=== PATIENT | female | born 1980 | race Caucasian/White ===

== ENCOUNTER 2017-02-19 18:04 | Emergency (ER) | payer BC ==
[2017-02-19 18:52] VITALS: BP 113/60
--- NOTE | 2017-02-19 19:06 | UC ---
Throat Pain/Nasal Balbir HPI - HPI Summary HPI Summary: Sever ST since last night. Son currently has strep and is being treated. - History of Current Complaint Chief Complaint: UCRespiratory Stated Complaint: SORE THROAT Time Seen by Provider: 02/19/17 18:56 Hx Obtained From: Patient Hx Last Menstrual Period: 2 weeks ago ?: No Onset/Duration: Gradual Onset, Lasting Days Severity: Moderate Cough: None Associated Signs & Symptoms: Negative: Sinus Discomfort, Nasal Discharge - Allergies/Home Medications Allergies/Adverse Reactions: Allergies Allergy/AdvReac Type Severity Reaction Status Date / Time Codeine Allergy Intermediate Nausea And Verified 02/19/17 18:46 Vomiting Molds & Smuts Allergy Intermediate Difficulty Verified 02/19/17 18:46 Breathing Penicillins Allergy Intermediate Unknown Verified 02/19/17 18:46 Reaction Details Cephalexin [From Keflex] Allergy Rash Verified 02/19/17 18:46 Clindamycin Allergy Rash Verified 02/19/17 18:46 Iodine Allergy Hives Verified 02/19/17 18:46 ADHESIVE TAPE Allergy Blisters Uncoded 02/19/17 18:46 PMH/Surg Hx/FS Hx/Imm Hx Endocrine History Of: Denies: Diabetes, Thyroid Disease Cardiovascular History Of: Denies: Cardiac Disorders, Hypertension - TENDS TO BE LOW, SOMETIMES MAKES HER VERY WEAK, Pacemaker/ICD, Congestive Heart Failure Respiratory History Of: Denies: COPD, Asthma GI/ History Of: Denies: Ulcer, Renal Disease Psychological History Of: Reports: Anxiety - Hx OF, HAS MEDS, HASN'T USED THIS YEAR, Depression - Surgical History Surgical History: Yes Surgery Procedure, Year, and Place: 2010 TUBAL LIGATION [facility] [place] 1997 & 2010 C- SECTION X2 [facility] [place]/2011 INTESTINAL RESECTION [facility] [place] Sinus Surgery 11/2014 - Family History Known Family History: Positive: Hypertension - Social History Lives: With Family Alcohol Use: Weekly Alcohol Amount: 2-3 DRINKS/WEEK Substance Use Type: None Substance Use Comment - Amount & Last Used: daily xanax Smoking Status (MU): Heavy Every Day Tobacco Smoker Type: Cigarettes Amount Used/How Often: 16 cigs per day Length of Time of Smoking/Using Tobacco: 17 YEARS Have You Smoked in the Last Year: Yes Household Exposure Type: Cigarettes - Immunization History Most Recent Influenza Vaccination: fall 2015 Review of Systems Constitutional: Negative Skin: Negative Eyes: Negative ENT: Sore Throat Respiratory: Negative Cardiovascular: Negative Gastrointestinal: Negative Genitourinary: Negative Motor: Negative Neurovascular: Negative Musculoskeletal: Negative Neurological: Negative Psychological: Negative All Other Systems Reviewed And Are Negative: Yes Physical Exam Triage Information Reviewed: Yes Appearance: Well-Appearing, Well-Nourished, Pain Distress - with swallowing Vital Signs: Initial Vital Signs Temp 98.0 F 02/19/17 18:48 Pulse 82 02/19/17 18:48 Resp 16 02/19/17 18:48 BP 113/60 02/19/17 18:48 Pulse Ox 99 02/19/17 18:48 Vital Signs Reviewed: Yes Eye Exam: Normal Eyes: Positive: Conjunctiva Clear ENT: Positive: Hearing grossly normal, Pharyngeal erythema, TMs normal, Tonsillar swelling, Tonsillar exudate Dental: Positive: Gross Decay/Caries @ Neck: Positive: Supple, Enlarged Nodes @ - tonsillar Respiratory Exam: Normal Respiratory: Positive: Chest non-tender, Lungs clear, Normal breath sounds, No respiratory distress, No accessory muscle use Cardiovascular Exam: Normal Cardiovascular: Positive: RRR, No Murmur Musculoskeletal Exam: Normal Neurological Exam: Normal Neurological: Positive: Alert Psychological Exam: Normal Skin Exam: Normal Throat Pain/Nasal Course/Dx - Course Course Of Treatment: Discussed clinical dx of strep given her symptoms and close household contact with strep, pt understands and agrees. Does not want RST. - Differential Dx/Diagnosis Provider Diagnoses: strep tonsillitis Discharge - Discharge Plan Condition: Stable Disposition: HOME Prescriptions: Azithromyxin RAOUL (NF) [Z-Raoul (Zithromax) 250 mg tabs #6] 2 tab PO .TODAY, THEN 1 DAILY #6 tab Patient Education Materials: Strep Throat (ED) Referrals: Gurjit Murray MD [Primary Care Provider] - Additional Instructions: I expect you to have clear improvement over the next 3-4 days. If you have new symptoms or fever after the next 2 days, please see your primary care provider or return here.
== END 2017-02-19 19:05 | disposition home or self-care (01) ==
LOC: UCEAST 18:04
DX: J03.00 Acute streptococcal tonsillitis, unspecified (principal); F41.9 Anxiety disorder, unspecified; F17.210 Nicotine dependence, cigarettes, uncomplicated; Z88.5 Allergy status to narcotic agent; Z88.3 Allergy status to other anti-infective agents; Z88.0 Allergy status to penicillin; Z91.048 Other nonmedicinal substance allergy status
CPT/HCPCS: 99212; G0463

== ENCOUNTER 2017-05-03 03:50 | Emergency (ER) | payer BC ==
[2017-05-03] MEDS ORDERED: Sulfamethox/Trimethoprim DS 800/160* TAB PO ONE (04:09)
[2017-05-03] MEDS ORDERED: Acetaminophen TAB* 325 MG PO ONE (04:20)
--- NOTE | 2017-05-03 04:21 | ED ---
Patricia Casas Rebecca, scribed for Noel Worthy MD on 05/03/17 at 0411 . Complex/Multi-Sys Presentation - HPI Summary HPI Summary: Pt is a 37 y/o F who presents to ED c/o dental pain and swelling. Pain began yesterday (05/02) at "dinner time" with the swelling starting at 2300. Sx have been constant and worsening since onset. Pain is currently severe, ranked 7/10. Sx aggravated by salt water rinse, alleviated by nothing. - History Of Current Complaint Chief Complaint: EDGeneral Time Seen by Provider: 05/03/17 04:05 Hx Obtained From: Patient Onset/Duration: Still Present Timing: Constant Severity Initially: Moderate - 05/06 Location: Pain At: - Dental Aggravating Factor(s): Salt water rinse Alleviating Factor(s): Nothing Associated Signs And Symptoms: Positive: Other - Dental swelling - Allergies/Home Medications Allergies/Adverse Reactions: Allergies Allergy/AdvReac Type Severity Reaction Status Date / Time Codeine Allergy Intermediate Nausea And Verified 05/03/17 03:52 Vomiting Molds & Smuts Allergy Intermediate Difficulty Verified 05/03/17 03:52 Breathing Penicillins Allergy Intermediate Unknown Verified 05/03/17 03:52 Reaction Details Cephalexin [From Keflex] Allergy Rash Verified 05/03/17 03:52 Clindamycin Allergy Rash Verified 05/03/17 03:52 Iodine Allergy Hives Verified 05/03/17 03:52 ADHESIVE TAPE Allergy Blisters Uncoded 05/03/17 03:52 PMH/Surg Hx/FS Hx/Imm Hx Endocrine/Hematology History: Denies: Hx Diabetes, Hx Thyroid Disease Cardiovascular History: Reports: Other Cardiovascular Problems/Disorders - LOW BLOOD PRESSURE & LOW BLOOD SUGAR Denies: Hx Congestive Heart Failure, Hx Hypertension - TENDS TO BE LOW, SOMETIMES MAKES HER VERY WEAK, Hx Pacemaker/ICD Respiratory History: Denies: Hx Asthma, Hx Chronic Obstructive Pulmonary Disease (COPD) GI History: Denies: Hx Ulcer Comment Only: Other GI Disorders - 10/2011 INTESTIONAL OBSTRUCTION SURGERY History: Denies: Hx Dialysis, Hx Renal Disease Sensory History: Reports: Hx Contacts or Glasses - WILL WEAR GLASSES Denies: Hx Hearing Aid Opthamlomology History: Reports: Hx Contacts or Glasses - WILL WEAR GLASSES Psychiatric History: Reports: Hx Anxiety - Hx OF, HAS MEDS, HASN'T USED THIS YEAR, Hx Depression, Hx of Violent Episodes Against Others Denies: Hx Eating Disorder, Hx Panic Disorder - Surgical History Surgery Procedure, Year, and Place: 2010 TUBAL LIGATION [facility] [place] 1997 & 2010 C- SECTION X2 [facility] [place]/2011 INTESTINAL RESECTION [facility] [place] Sinus Surgery 11/2014 Hx Anesthesia Reactions: - BP DROPPED LOW Infectious Disease History: No Infectious Disease History: Reports: Hx Shingles Denies: Hx Clostridium Difficile, Hx Hepatitis, Hx Human Immunodeficiency Virus (HIV), Hx of Known/Suspected MRSA, Hx Tuberculosis, Traveled Outside the [place] in Last 30 Days - Family History Known Family History: Positive: Hypertension - Social History Alcohol Use: Weekly Alcohol Amount: 2-3 DRINKS/WEEK Substance Use Type: Reports: None Substance Use Comment - Amount & Last Used: daily xanax Smoking Status (MU): Heavy Every Day Tobacco Smoker Type: Cigarettes Amount Used/How Often: 16 cigs per day Length of Time of Smoking/Using Tobacco: 17 YEARS Have You Smoked in the Last Year: Yes Review of Systems Negative: Fever Positive: Dental Pain, Other - Dental swelling All Other Systems Reviewed And Are Negative: Yes Physical Exam Triage Information Reviewed: Yes Vital Signs On Initial Exam: Initial Vitals Temp Pulse Resp BP Pulse Ox 97.5 F 80 18 133/70 100 05/03/17 03:52 05/03/17 03:52 05/03/17 03:52 05/03/17 03:52 05/03/17 03:52 Vital Signs Reviewed: Yes Appearance: Positive: Well-Appearing, No Pain Distress Skin: Positive: Warm Head/Face: Positive: Normal Head/Face Inspection Eyes: Positive: JOHAN ENT: Positive: Hearing grossly normal Dental: Positive: Gross Decay/Caries @ - rt lower mouth Neck: Positive: Supple, Nontender Respiratory/Lung Sounds: Positive: Breath Sounds Present Neurological: Positive: Alert, Oriented to Person Place, Time Psychiatric: Positive: Affect/Mood Appropriate Diagnostics - Vital Signs Vital Signs Temp Pulse Resp BP Pulse Ox 05/03/17 03:52 97.5 F 80 18 133/70 100 - Laboratory Lab Statement: Any lab studies that have been ordered have been reviewed, and results considered in the medical decision making process. Complex Multi-Symp Course/Dx Assessment/Plan: Pt is a 37 y/o F who presents to ED c/o dental pain since "dinner time" yesterday and swelling since 2300. Sx have been constant and worsening since onset. Pain is currently severe, ranked 7/10. Sx aggravated by salt water rinse, alleviated by nothing. Pt will be D/C to home with Dx of dental pain and an Rx for Bactrim. - Diagnoses Provider Diagnoses: Pain, dental Discharge - Discharge Plan Condition: Stable Disposition: HOME Prescriptions: Sulfamethox/Trimethoprim DS* [Bactrim DS 800/160 TAB*] 1 tab PO BID #14 tab Patient Education Materials: Toothache (ED) Referrals: Gurjit Murray MD [Primary Care Provider] - 3 Days The documentation as recorded by the Patricia hurley Rebecca accurately reflects the service I personally performed and the decisions made by me, Noel Worthy MD.
[2017-05-03 04:29] VITALS: BP 123/67
== END 2017-05-03 04:28 | disposition home or self-care (01) ==
LOC: ED 03:50
DX: K08.89 Other specified disorders of teeth and supporting structures (principal); F17.210 Nicotine dependence, cigarettes, uncomplicated
CPT/HCPCS: 99282; A9270-GY

== ENCOUNTER → 2017-05-04 06:30 | Emergency (ER) | payer BC ==
[~2017-05-04 06:30] MED LIST: HYDROcodone/ACETAMIN 5-325 MG* 1 TAB PO ONE; Ketorolac INJ* 60 MG/2 ML VIAL IM ONE
[2017-05-04 08:26] VITALS: BP 127/77
--- NOTE | 2017-05-05 22:33 | ED ---
Patricia Casas Rebecca, scribed for Paulino Pelaez MD on 05/04/17 at 0754 . Complex/Multi-Sys Presentation - HPI Summary HPI Summary: Pt is a 37 y/o who presents to ED c/o dental pain. Pain began 2 days ago and has been constant and worsening since onset. Pain is in the front of the mouth with radiation to the R side of the jaw. Pain is currently severe, ranked 10/10 and characterized as throbbing and shooting. Sx aggravated by chewing, alleviated by cold compresses, unchanged by Vicodin (last dose at 0300) and Ibuprofen (600 mg every 6 hours). Additionally c/o sore throat. Denies fever. Pt was evaluated by [facility] ED yesterday for the same sx, was D/C to home with Dx of dental pain and given an Rx for Bactrim. She was seen by her dentist yesterday who found via XR that she has a dental abscess and changed her Rx to Clindamycin with the last dose being at 0400 this morning. Is calling her dentist on Saturday to schedule a follow up appointment. - History Of Current Complaint Chief Complaint: EDDentalPain Hx Obtained From: Patient Onset/Duration: Lasting Days, Still Present Timing: Constant Severity Currently: Severe Severity Initially: Severe Location: Pain At: - Dental, Radiates To: - R side of the jaw Character: Sharp, Throbbing Aggravating Factor(s): Chewing Alleviating Factor(s): Cold compress Associated Signs And Symptoms: Positive: Other - Sore throat. Negative: Fever - Allergies/Home Medications Allergies/Adverse Reactions: Allergies Allergy/AdvReac Type Severity Reaction Status Date / Time Codeine Allergy Intermediate Nausea And Verified 05/04/17 06:54 Vomiting Molds & Smuts Allergy Intermediate Difficulty Verified 05/04/17 06:54 Breathing Penicillins Allergy Intermediate Unknown Verified 05/04/17 06:54 Reaction Details Cephalexin [From Keflex] Allergy Rash Verified 05/04/17 06:54 Iodine Allergy Hives Verified 05/04/17 06:54 ADHESIVE TAPE Allergy Blisters Uncoded 05/04/17 06:54 PMH/Surg Hx/FS Hx/Imm Hx Endocrine/Hematology History: Denies: Hx Diabetes, Hx Thyroid Disease Cardiovascular History: Reports: Other Cardiovascular Problems/Disorders - LOW BLOOD PRESSURE & LOW BLOOD SUGAR Denies: Hx Congestive Heart Failure, Hx Hypertension - TENDS TO BE LOW, SOMETIMES MAKES HER VERY WEAK, Hx Pacemaker/ICD Respiratory History: Denies: Hx Asthma, Hx Chronic Obstructive Pulmonary Disease (COPD) GI History: Denies: Hx Ulcer Comment Only: Other GI Disorders - 10/2011 INTESTIONAL OBSTRUCTION SURGERY History: Denies: Hx Dialysis, Hx Renal Disease Sensory History: Reports: Hx Contacts or Glasses - WILL WEAR GLASSES Denies: Hx Hearing Aid Opthamlomology History: Reports: Hx Contacts or Glasses - WILL WEAR GLASSES Psychiatric History: Reports: Hx Anxiety - Hx OF, HAS MEDS, HASN'T USED THIS YEAR, Hx Depression, Hx of Violent Episodes Against Others Denies: Hx Eating Disorder, Hx Panic Disorder - Surgical History Surgery Procedure, Year, and Place: 2010 TUBAL LIGATION [facility] [place] 1997 & 2010 C- SECTION X2 [facility] [place]/2011 INTESTINAL RESECTION [facility] [place] Sinus Surgery 11/2014 Hx Anesthesia Reactions: - BP DROPPED LOW Infectious Disease History: No Infectious Disease History: Reports: Hx Shingles Denies: Hx Clostridium Difficile, Hx Hepatitis, Hx Human Immunodeficiency Virus (HIV), Hx of Known/Suspected MRSA, Hx Tuberculosis, Traveled Outside the in Last 30 Days - Family History Known Family History: Positive: Hypertension - Social History Alcohol Use: Rare Alcohol Amount: 2-3 DRINKS/WEEK Substance Use Type: Reports: None Substance Use Comment - Amount & Last Used: daily xanax Smoking Status (MU): Heavy Every Day Tobacco Smoker Type: Cigarettes Amount Used/How Often: 16 cigs per day Length of Time of Smoking/Using Tobacco: 17 YEARS Have You Smoked in the Last Year: Yes Review of Systems Negative: Fever, Chills Negative: Erythema Positive: Dental Pain, Sore Throat Negative: Chest Pain Negative: Shortness Of Breath, Cough Negative: Abdominal Pain, Vomiting, Nausea Negative: dysuria, hematuria Negative: Myalgia, Edema Negative: Rash Neurological: Other - Negative dizziness All Other Systems Reviewed And Are Negative: Yes Physical Exam - Summary Physical Exam Summary: Constitutional: Well-developed, Well-nourished, Alert. (-) Distressed Skin: Warm, Dry HENT: Normocephalic; Atraumatic Eyes: Conjunctiva normal Neck: Musculoskeletal ROM normal neck. (-) JVD, (-) Stridor, (-) Tracheal deviation Cardio: Rhythm regular, rate normal, Heart sounds normal; Intact distal pulses; The pedal pulses are 2+ and symmetric. Radial pulses are 2+ and symmetric. (-) Murmur Pulmonary/Chest wall: Effort normal. (-) Respiratory distress, (-) Wheezes, (-) Rales Abd: Soft, (-) Tenderness, (-) Distension, (-) Guarding, (-) Rebound Musculoskeletal: (-) Edema Lymph: (-) Cervical adenopathy Neuro: Alert, Oriented x3 Psych: Mood and affect Normal Triage Information Reviewed: Yes Vital Signs On Initial Exam: Initial Vitals Temp Pulse Resp BP Pulse Ox 97.4 F 70 20 121/66 98 05/04/17 06:32 05/04/17 06:32 05/04/17 06:32 05/04/17 06:32 05/04/17 06:32 Vital Signs Reviewed: Yes Diagnostics - Vital Signs Vital Signs Temp Pulse Resp BP Pulse Ox 05/04/17 06:40 97.6 F 70 20 121/66 98 05/04/17 06:32 97.4 F 70 20 121/66 98 - Laboratory Lab Statement: Any lab studies that have been ordered have been reviewed, and results considered in the medical decision making process. Complex Multi-Symp Course/Dx Assessment/Plan: Pt is a 37 y/o who presents to ED c/o severe dental pain for 2 days. Pain is in the front of the mouth with radiation to the R side of the jaw and characterized as throbbing and shooting. Sx aggravated by chewing, alleviated by cold compresses, unchanged by Vicodin (last dose at 0300) and Ibuprofen (600 mg every 6 hours). Additionally c/o sore throat. Denies fever. Pt was evaluated by [facility] ED yesterday for the same sx, was D/C to home with Dx of dental pain and given an Rx for Bactrim. She was seen by her dentist yesterday who found via XR that she has a dental abscess and changed her Rx to Clindamycin with the last dose being at 0400 this morning. Is calling her dentist on Saturday to schedule a follow up appointment. Pt will be D/C to home with Dx of dental abscess and Rx for Cornelius and Naprosyn. - Diagnoses Provider Diagnoses: Dental abscess Discharge - Discharge Plan Condition: Stable Disposition: HOME Prescriptions: HYDROcodone/ACETAMIN 5-325 MG* [Cornelius 5-325 TAB*] 2 tab PO Q6H PRN #15 tab MDD 8 PRN Reason: Pain Scale 6-10 Naproxen TAB* [Naprosyn 250 mg TAB*] 500 mg PO Q8H PRN #30 tab PRN Reason: Pain - Severe Patient Education Materials: Dental Abscess (ED) Referrals: Brandie Leonardo MD [Primary Care Provider] - 3 Days Additional Instructions: Call your dentist on Saturday. RETURN TO EMERGENCY DEPARTMENT FOR ANY CHANGING OR WORSENING SYMPTOMS. The documentation as recorded by the Patricia hurley Rebecca accurately reflects the service I personally performed and the decisions made by , Paulino Pelaez MD.
== END | disposition home or self-care (01) ==
LOC: ED 06:30
DX: K04.7 Periapical abscess without sinus (principal); J02.9 Acute pharyngitis, unspecified; Z88.5 Allergy status to narcotic agent; Z88.1 Allergy status to other antibiotic agents; Z88.0 Allergy status to penicillin; Z91.048 Other nonmedicinal substance allergy status; F41.9 Anxiety disorder, unspecified; F32.9 Major depressive disorder, single episode, unspecified; F17.210 Nicotine dependence, cigarettes, uncomplicated
CPT/HCPCS: 96372; 99282; J1885

== ENCOUNTER 2018-05-03 01:32 | Emergency (ER) | payer BC ==
[2018-05-03] MEDS ORDERED: Famotidine IV* 10 MG/ML 2 ML (20 mg) IV SLOW PU ONE (01:36)
[2018-05-03] MEDS ORDERED: methylPREDNISolone 125 MG* 2 ML VIAL IV ONE (01:36)
[2018-05-03] MEDS ORDERED: NS 0.9% 1000 ML* 1,000 ML IV ONE (01:37)
[2018-05-03] MEDS ORDERED: methylPREDNISolone 125 MG* 2 ML VIAL ONE (01:38)
[2018-05-03] MEDS ORDERED: Famotidine IV* 10 MG/ML 2 ML (20 mg) ONE (01:38)
--- NOTE | 2018-05-03 03:00 | ED ---
Ashlee Casas Emily, scribed for Chapo Cobb MD on 05/03/18 at 0142 . Allergic Reaction/Systemic - HPI Summary HPI Summary: This patient is a 38 year old F BIBA to [facility] with a chief complaint of allergic reaction that began MIXOLOGIST. The patient reports that she is allergic to fish, and ate fries that were cooked in oil used to cook fish. The patient rates the pain 0/10 in severity. Symptoms aggravated by nothing. Symptoms alleviated by EMS treatment. Patient reports cough and itching in neck and ears. Per EMS, pt received 0.3 Epi, 50 Benadryl IM, and nebulizer treatment MIXOLOGIST. - History of Current Complaint Time Seen by Provider: 05/03/18 01:36 Hx Obtained From: Patient Hx Last Menstrual Period: 2 weeks ago Onset/Duration: Sudden Onset, Started hours ago, Still Present Timing: Constant Severity Initially: Mild Severity Currently: Mild Pain Intensity: 0 Pain Scale Used: 0-10 Numeric Location: Diffuse Aggravating Factor(s): Nothing Alleviating Factor(s): Other - EMS treatment Associated Signs And Symptoms: Positive: Cough Wheezing, Other: - Positive itching in throat and ears - Allergies/Home Medications Allergies/Adverse Reactions: Allergies Allergy/AdvReac Type Severity Reaction Status Date / Time cephalexin Allergy Hives Verified 05/03/18 01:41 codeine Allergy Nausea And Verified 05/03/18 01:41 Vomiting iodine Allergy Hives Verified 05/03/18 01:41 mold Allergy Difficulty Verified 05/03/18 02:37 Breathing Penicillins Allergy Unknown Verified 05/03/18 01:41 Reaction Details ADHESIVE TAPE Allergy Blisters Uncoded 05/04/17 06:54 Home Medications: Home Medications Norethindrone 0.35 mg PO DAILY 05/03/18 [History Confirmed 05/03/18] Omeprazole 20 mg PO DAILY 05/03/18 [History Confirmed 05/03/18] PMH/Surg Hx/FS Hx/Imm Hx Previously Healthy: No Endocrine/Hematology History: Denies: Hx Diabetes, Hx Thyroid Disease Cardiovascular History: Reports: Other Cardiovascular Problems/Disorders - LOW BLOOD PRESSURE & LOW BLOOD SUGAR Denies: Hx Congestive Heart Failure, Hx Hypertension - TENDS TO BE LOW, SOMETIMES MAKES HER VERY WEAK, Hx Pacemaker/ICD Respiratory History: Denies: Hx Asthma, Hx Chronic Obstructive Pulmonary Disease (COPD) GI History: Denies: Hx Ulcer Comment Only: Other GI Disorders - 10/2011 INTESTIONAL OBSTRUCTION SURGERY History: Denies: Hx Dialysis, Hx Renal Disease Sensory History: Reports: Hx Contacts or Glasses - WILL WEAR GLASSES Denies: Hx Hearing Aid Opthamlomology History: Reports: Hx Contacts or Glasses - WILL WEAR GLASSES Psychiatric History: Reports: Hx Anxiety - Hx OF, HAS MEDS, HASN'T USED THIS YEAR, Hx Depression, Hx of Violent Episodes Against Others Denies: Hx Eating Disorder, Hx Panic Disorder - Surgical History Surgery Procedure, Year, and Place: 2010 TUBAL LIGATION [facility] [place] 1997 & 2010 C- SECTION X2 [facility] [place] INTESTINAL RESECTION [facility] [place] Sinus Surgery 11/2014 Hx Anesthesia Reactions: - BP DROPPED LOW Infectious Disease History: No Infectious Disease History: Reports: Hx Shingles Denies: Hx Clostridium Difficile, Hx Hepatitis, Hx Human Immunodeficiency Virus (HIV), Hx of Known/Suspected MRSA, Hx Tuberculosis, Traveled Outside the in Last 30 Days - Family History Known Family History: Positive: Hypertension - Social History Occupation: Employed Part-time Lives: With Family Alcohol Use: Rare Alcohol Amount: 2-3 DRINKS/WEEK Hx Substance Use: No Substance Use Type: Reports: None Substance Use Comment - Amount & Last Used: daily xanax Hx Tobacco Use: Yes Smoking Status (MU): Heavy Every Day Tobacco Smoker Type: Cigarettes Amount Used/How Often: 16 cigs per day Length of Time of Smoking/Using Tobacco: 17 YEARS Have You Smoked in the Last Year: Yes Review of Systems Positive: Other - Positive itching in throat and ears Positive: Cough All Other Systems Reviewed And Are Negative: Yes Physical Exam - Summary Physical Exam Summary: VITAL SIGNS: Reviewed. GENERAL: Patient is a well-developed and nourished female who is lying comfortable in the stretcher. Patient is not in any acute respiratory distress. HEAD AND FACE: No signs of trauma. No ecchymosis, hematomas or skull depressions. No sinus tenderness. EYES: PERRLA, EOMI x 2, No injected conjunctiva, no nystagmus. EARS: Hearing grossly intact. Ear canals and tympanic membranes are within normal limits. MOUTH: Oropharynx within normal limits. NECK: Supple, trachea is midline, no adenopathy, no JVD, no carotid bruit, no c- spine tenderness, neck with full ROM. CHEST: Symmetric, no tenderness at palpation LUNGS: Clear to auscultation bilaterally. No wheezing or crackles. Coughing CVS: Regular rate and rhythm, S1 and S2 present, no murmurs or gallops appreciated. ABDOMEN: Soft, non-tender. No signs of distention. No rebound no guarding, and no masses palpated. Bowel sounds are normal. EXTREMITIES: FROM in all major joints, no edema, no cyanosis or clubbing. NEURO: Alert and oriented x 3. No acute neurological deficits. Speech is normal and follows commands. SKIN: Dry and warm Triage Information Reviewed: Yes Vital Signs On Initial Exam: Initial Vitals Temp Pulse Resp BP Pulse Ox 97.9 F 95 28 134/76 96 05/03/18 01:35 05/03/18 01:35 05/03/18 01:35 05/03/18 01:35 05/03/18 01:35 Vital Signs Reviewed: Yes Diagnostics - Vital Signs Vital Signs Temp Pulse Resp BP Pulse Ox 05/03/18 01:35 97.9 F 95 28 134/76 96 - Laboratory Lab Statement: Any lab studies that have been ordered have been reviewed, and results considered in the medical decision making process. Allergic Reaction Course/Dx - Course Course Of Treatment: This patient is a 38 year old F BIBA to [facility] with a chief complaint of allergic reaction that began MIXOLOGIST. The patient reports that she is allergic to fish, and ate fries that were cooked in oil used to cook fish. In the ED course the patient was given fluids, solu-medrol, and Pepcid. Patient will be discharged with follow up from PCP. The patient is agreeable with this plan. - Diagnoses Provider Diagnoses: Allergic reaction Discharge - Sign-Out/Discharge Documenting (check all that apply): Discharge/Admit/Transfer - Discharge home - Discharge Plan Condition: Stable Disposition: HOME Prescriptions: predniSONE TAB* [Deltasone 20 MG TAB*] 40 mg PO DAILY #10 tab Patient Education Materials: General Allergic Reaction (ED), Prednisone (By mouth) Referrals: Brandie Leonardo MD [Primary Care Provider] - 2 Days Additional Instructions: RETURN TO THE EMERGENCY DEPARTMENT FOR NEW OR WORSENING SYMPTOMS The documentation as recorded by the Ashlee hurley Emily accurately reflects the service I personally performed and the decisions made by , Chapo Cobb MD.
[2018-05-03 03:32] VITALS: BP 119/59
== END 2018-05-03 03:10 | disposition home or self-care (01) ==
LOC: ED 01:32
DX: T78.40XA Allergy, unspecified, initial encounter (principal); R05 Cough; X58.XXXA Exposure to other specified factors, initial encounter; F17.210 Nicotine dependence, cigarettes, uncomplicated
CPT/HCPCS: 96374; 96375; 99283; J2930

== ENCOUNTER 2018-09-21 02:24 | Emergency (ER) | payer BC ==
[2018-09-21] MEDS ORDERED: Nicotine Inhaler* 10 MG AMP INH PRN (02:38)
[2018-09-21 03:03] LABS: ABS Basophils 0.2 10^3/ul (0-0.2); ABS Eosinophils 0.4 10^3/ul (0-0.6); ABS Lymphocytes 3.9 10^3/ul (1.0-4.8); ABS Monocytes 0.6 10^3/ul (0-0.8); ABS Neutrophils 7.6 10^3/ul (1.5-7.7); ABS Nucleated RBC 0 10^3/ul; Eosinophil % 3.3 % (0-6); Hematocrit 44 % (35-47); Hemoglobin 15.1 g/dl (12.0-16.0); Lymphocyte % 30.7 % (25-47); Mean Corpuscular HGB Conc 34 g/dl (31-36); Mean Corpuscular Hemoglobin 30 pg (27-31); Mean Corpuscular Volume 88 fL (80-97); Mean Platelet Volume 7.6 fL (7.4-10.4); Nucleated Red Blood Cells % 0; Platelet Count 318 10^3/ul (150-450); Red Blood Count 5.08 10^6/ul (4.00-5.40); Red Cell Distribution Width 13 % (10.5-15); White Blood Count 12.6 10^3/ul (3.5-10.8)
[2018-09-21 03:19] LABS: EGFR Non-African American 111.3 (>60)
--- NOTE | 2018-09-21 03:58 | ED ---
Psychiatric Complaint - HPI Summary HPI Summary: This patient is a 38 year old F brought to [facility] by Danuta MANNING for a mental health evaluation, according to triage note. Patient brought in by police for unclear reasons as patient is very evasive and uncooperative. Patient reports a history of multiple personality disorder and PTSD at triage. - History Of Current Complaint Chief Complaint: EDMentalHealth Time Seen by Provider: 09/21/18 02:45 Hx Obtained From: Patient Hx Last Menstrual Period: 2 weeks ago Onset/Duration: Still Present Associated Signs And Symptoms: Positive: Hostile Related History: Positive For: Prior Psychiatric Issues - Allergies/Home Medications Allergies/Adverse Reactions: Allergies Allergy/AdvReac Type Severity Reaction Status Date / Time cephalexin Allergy Hives Verified 09/21/18 02:31 codeine Allergy Nausea And Verified 09/21/18 02:31 Vomiting Fish Containing Products Allergy Hives/Diff. Verified 09/21/18 02:31 Breathing/I tching iodine Allergy Hives Verified 09/21/18 02:31 mold Allergy Difficulty Verified 09/21/18 02:31 Breathing Penicillins Allergy Unknown Verified 09/21/18 02:31 Reaction Details ADHESIVE TAPE Allergy Blisters Uncoded 09/21/18 02:31 PMH/Surg Hx/FS Hx/Imm Hx Endocrine/Hematology History: Denies: Hx Diabetes, Hx Thyroid Disease Cardiovascular History: Reports: Other Cardiovascular Problems/Disorders - LOW BLOOD PRESSURE & LOW BLOOD SUGAR Denies: Hx Congestive Heart Failure, Hx Hypertension - TENDS TO BE LOW, SOMETIMES MAKES HER VERY WEAK, Hx Pacemaker/ICD Respiratory History: Denies: Hx Asthma, Hx Chronic Obstructive Pulmonary Disease (COPD) GI History: Denies: Hx Ulcer Comment Only: Other GI Disorders - 10/2011 INTESTIONAL OBSTRUCTION SURGERY History: Denies: Hx Dialysis, Hx Renal Disease Sensory History: Reports: Hx Contacts or Glasses - WILL WEAR GLASSES Denies: Hx Hearing Aid Opthamlomology History: Reports: Hx Contacts or Glasses - WILL WEAR GLASSES Psychiatric History: Reports: Hx Anxiety - Hx OF, HAS MEDS, HASN'T USED THIS YEAR, Hx Depression, Hx of Violent Episodes Against Others Denies: Hx Eating Disorder, Hx Panic Disorder - Surgical History Surgery Procedure, Year, and Place: 2010 TUBAL LIGATION [facility] [place] 1997 & 2010 C- SECTION X2 [facility] [place]/[place] INTESTINAL RESECTION [facility] [place] Sinus Surgery 11/2014 Hx Anesthesia Reactions: - BP DROPPED LOW - Immunization History Date of Tetanus Vaccine: unk Date of Influenza Vaccine: unk Infectious Disease History: No Infectious Disease History: Reports: Hx Shingles Denies: Hx Clostridium Difficile, Hx Hepatitis, Hx Human Immunodeficiency Virus (HIV), Hx of Known/Suspected MRSA, Hx Tuberculosis, Traveled Outside the US in Last 30 Days - Family History Known Family History: Positive: Hypertension - Social History Alcohol Use: Weekly Alcohol Amount: 2-3 DRINKS/WEEK Hx Substance Use: No Substance Use Type: Reports: None Substance Use Comment - Amount & Last Used: daily xanax Hx Tobacco Use: Yes Smoking Status (MU): Heavy Every Day Tobacco Smoker Type: Cigarettes Amount Used/How Often: 16 cigs per day Length of Time of Smoking/Using Tobacco: 17 YEARS Have You Smoked in the Last Year: Yes Review of Systems Negative: Fever Positive: Depressed All Other Systems Reviewed And Are Negative: Yes Physical Exam - Summary Physical Exam Summary: Appearance: Well-appearing, Well-nourished, lying in bed comfortable Skin: Warm, dry, no obvious rash Eyes: sclera anicteric, no conjunctival pallor ENT: mucous membranes moist Neck: deferred Respiratory: No signs of respiratory distress Cardiovascular: Appears well perfused, pulses are nml Abdomen: deferred Musculoskeletal: Moving all 4 extremities without obvious discomfort Neurological: Awake and alert, mentation is normal, speech is fluent and appropriate Psychiatric: evasive and uncooperative, asks questions of my training Triage Information Reviewed: Yes Vital Signs On Initial Exam: Initial Vitals Temp Pulse Resp BP Pulse Ox 97.3 F 124 18 120/74 94 09/21/18 02:28 09/21/18 02:28 09/21/18 02:28 09/21/18 02:28 09/21/18 02:28 Vital Signs Reviewed: Yes Diagnostics - Vital Signs Vital Signs Temp Pulse Resp BP Pulse Ox 09/21/18 02:28 97.3 F 124 18 120/74 94 - Laboratory Lab Results: Lab Results 09/21/18 09/21/18 Range/Units 02:54 02:54 WBC 12.6 H (3.5-10.8) 10^3/ul RBC 5.08 (4.00-5.40) 10^6/ul Hgb 15.1 (12.0-16.0) g/dl Hct 44 (35-47) % MCV 88 (80-97) fL MCH 30 (27-31) pg MCHC 34 (31-36) g/dl RDW 13 (10.5-15) % Plt Count 318 (150-450) 10^3/ul MPV 7.6 (7.4-10.4) fL Neut % (Auto) 60.0 (38-83) % Lymph % (Auto) 30.7 (25-47) % [place] % (Auto) 4.4 (0-7) % Eos % (Auto) 3.3 (0-6) % Baso % (Auto) 1.6 (0-2) % Absolute Neuts (auto) 7.6 (1.5-7.7) 10^3/ul Absolute Lymphs (auto) 3.9 (1.0-4.8) 10^3/ul Absolute Monos (auto) 0.6 (0-0.8) 10^3/ul Absolute Eos (auto) 0.4 (0-0.6) 10^3/ul Absolute Basos (auto) 0.2 (0-0.2) 10^3/ul Absolute Nucleated RBC 0 10^3/ul Nucleated RBC % 0 Sodium 143 (135-145) mmol/L Potassium 3.7 (3.5-5.0) mmol/L Chloride 112 H (101-111) mmol/L Carbon Dioxide 22 (22-32) mmol/L Anion Gap 9 (2-11) mmol/L BUN 5 L (6-24) mg/dL Creatinine 0.60 (0.51-0.95) mg/dL Est GFR ( Amer) 134.7 (>60) Est GFR (Non-Af Amer) 111.3 (>60) BUN/Creatinine Ratio 8.3 (8-20) Glucose 128 H (70-100) mg/dL Calcium 9.2 (8.6-10.3) mg/dL Total Bilirubin 0.20 (0.2-1.0) mg/dL AST 16 (13-39) U/L ALT 16 (7-52) U/L Alkaline Phosphatase 56 (34-104) U/L Total Protein 7.8 (6.4-8.9) g/dL Albumin 4.8 (3.2-5.2) g/dL Globulin 3.0 (2-4) g/dL Albumin/Globulin Ratio 1.6 (1-3) TSH 4.45 (0.34-5.60) mcIU/mL Beta HCG, Quant < 0.60 mIU/mL Salicylates < 2.50 (<30) mg/dL Acetaminophen < 15 mcg/mL Serum Alcohol 250 H (<10) mg/dL Result Diagrams: 09/21/18 02:54 09/21/18 02:54 Lab Statement: Any lab studies that have been ordered have been reviewed, and results considered in the medical decision making process. Course/Dx - Course Course Of Treatment: 38 y/o F brought in by [facility] for mental health evaluation under unknown circumstances. Patient is very evasive and uncooperative. Patient questions my training. Labwork is obtained. Toxicology report is positive. Awaiting alcohol and substance metabolism prior to mental health evaluation. Patient is signed out to Dr. Burnette awaiting mental health clearance and evaluation. - Differential Dx/Clinical Impression Provider Diagnosis: Alcohol intoxication, Major depressive disorder, single episode, unspecified Discharge - Sign-Out/Discharge Documenting (check all that apply): Sign-Out Patient Signing out patient TO: Kash Castaneda [facility] Receiving patient FROM: Patrick Pugh - Discharge Plan Condition: Stable Disposition: HOME Patient Education Materials: Alcohol Intoxication (ED), Depression in Older Adults (ED) Referrals: Brandie Leonardo MD [Primary Care Provider] - 3 Days Additional Instructions: Per completion of a mental health evaluation, you are cleared for release and do not require inpatient psychiatric hospitalization at this time. Please go to nearest emergency room or call 911 if safety concerns arise or condition worsens. Important Phone Numbers: [facility] ph:[phone] Suicide Prevention and Crisis Services ph:[phone] National Suicide Prevention Lifeline ph:[phone] (8357) [facility] ph:[phone] Alcoholics Anonymous ph:[phone] [facility] ph:[phone] [employer] ph:[phone] Recommendation: Follow up with Dr. John. Follow up with your primary care doctor in 3 days. Return to the ED for new or worsening symptoms. - Billing Disposition and Condition Condition: STABLE Disposition: Home - Attestation Statements Document Initiated by Yasmaniibverito: Yes Documenting Scribe: Ngoc Fields Provider For Whom Jason is Documenting (Include Credential): Patrick Pugh MD Scribe Attestation: I, Ngoc Fields, scribed for Patrick Pugh MD on 09/22/18 at 0038. Scribe Documentation Reviewed: Yes Provider Attestation: The documentation as recorded by the Ngoc hurley accurately reflects the service I personally performed and the decisions made by me, Patrick Pugh MD
[2018-09-21 05:01] LABS: Urine Appearance Clear; Urine Blood 1+ (Negative); Urine Color Colorless; Urine Ketones Negative (Negative); Urine Protein Negative (Negative); Urine Red Blood Cell Trace(0-2/hpf) (Absent); Urine Specific Gravity 1.001 (1.010-1.030); Urine Urobilinogen Negative (Negative); Urine White Blood Cell Absent (Absent)
--- NOTE | 2018-09-21 08:32 | ED ---
Progress - Progress Note Progress Note: This patient is a 38 year old F brought to [facility] by Danuta MANNING for a mental health evaluation, according to triage note. Patient brought in by police for unclear reasons as patient is very evasive and uncooperative. Patient reports a history of multiple personality disorder and PTSD at triage. Patient is being signed out, pending sobriety and a MHE, from Dr. Pugh to Dr. Burnette during a shift change. Re-Evaluation - Re-Evaluation 1 Re-Evaluation Time: 08:08 Comment: Patient is asleep and comfortable in bed. Course/Dx - Course Course Of Treatment: 38 y/o F brought in by [place] [employer] for mental health evaluation under unknown circumstances. Patient is very evasive and uncooperative. Patient questions my training. Labwork is obtained. Toxicology report is positive. Awaiting alcohol and substance metabolism prior to mental health evaluation. Patient is signed out to Dr. Burnette awaiting mental health clearance and evaluation. Patient has been discharged with a dx of unspecified depressive order by Vaughn Lieberman MD, psychiatry. - Diagnoses Provider Diagnoses: Alcohol intoxication, Major depressive disorder, single episode, unspecified Discharge - Sign-Out/Discharge Documenting (check all that apply): Patient Departure - D/C, Receiving Sign-Out Receiving patient FROM: Patrick Pugh - Pending sobriety and a MHE - Discharge Plan Condition: Stable Disposition: HOME Patient Education Materials: Alcohol Intoxication (ED), Depression in Older Adults (ED) Referrals: Brandie Leonardo MD [Primary Care Provider] - 3 Days Additional Instructions: Per completion of a mental health evaluation, you are cleared for release and do not require inpatient psychiatric hospitalization at this time. Please go to nearest emergency room or call 911 if safety concerns arise or condition worsens. Important Phone Numbers: [facility] Unit ph:[phone] Suicide Prevention and Crisis Services ph:[phone] National Suicide Prevention Lifeline ph:[phone] (7646) [facility] ph:[phone] Alcoholics Anonymous ph: [facility] ph:[phone] [employer] ph:[phone] Recommendation: Follow up with Dr. John. Follow up with your primary care doctor in 3 days. Return to the ED for new or worsening symptoms. - Billing Disposition and Condition Condition: STABLE Disposition: Home - Attestation Statements Document Initiated by Jason: Yes Documenting Scribe: Lex Valdivia Provider For Whom Jason is Documenting (Include Credential): Kash Burnette MD Scribe Attestation: Lex Casas, scribed for Kash Burnette MD on 09/21/18 at 1840. Scribe Documentation Reviewed: Yes Provider Attestation: The documentation as recorded by the Lex hurley accurately reflects the service I personally performed and the decisions made by me, Kash Burnette MD
[2018-09-21 10:40] VITALS: BP 108/72
== END 2018-09-21 10:39 | disposition home or self-care (01) ==
LOC: ED 02:24
DX: F10.129 Alcohol abuse with intoxication, unspecified (principal); F32.9 Major depressive disorder, single episode, unspecified; F17.210 Nicotine dependence, cigarettes, uncomplicated; Z88.5 Allergy status to narcotic agent; Z88.0 Allergy status to penicillin
CPT/HCPCS: 36415; 80053; 80307; 80320; 80329; 81003; 81015; 84443; 84702; 85025; 99284; G0480

== ENCOUNTER 2018-11-25 16:44 | Emergency (ER) | payer BC ==
--- NOTE | 2018-11-25 16:48 | UC ---
Throat Pain/Nasal Balbir HPI - HPI Summary HPI Summary: 38 yo female presents with sore throat for the last 4 days with a mild dry cough. She tells me that about a month ago she had a sinus infection and was treated with doxycycline - her symptoms resolved. Then about 3 weeks ago she got the flu - feels better since then. Over the last 4 days, however, has developed a sore throat. She is able to tolerate po, but does have discomfort when swallowing. Denies fever, chills, sinus symptoms, cough, headache. She is still smoking daily. - History of Current Complaint Stated Complaint: SORE THROAT Time Seen by Provider: 11/25/18 16:47 Hx Obtained From: Patient Hx Last Menstrual Period: 2 weeks ago Onset/Duration: Gradual Onset Severity: Moderate Pain Intensity: 5 Pain Scale Used: 0-10 Numeric - Allergies/Home Medications Allergies/Adverse Reactions: Allergies Allergy/AdvReac Type Severity Reaction Status Date / Time cephalexin Allergy Hives Verified 11/25/18 16:57 codeine Allergy Nausea And Verified 11/25/18 16:57 Vomiting Fish Containing Products Allergy Hives/Diff. Verified 11/25/18 16:57 Breathing/I tching iodine Allergy Hives Verified 11/25/18 16:57 mold Allergy Difficulty Verified 11/25/18 16:57 Breathing Penicillins Allergy Unknown Verified 11/25/18 16:57 Reaction Details ADHESIVE TAPE Allergy Blisters Uncoded 11/25/18 16:57 PMH/Surg Hx/FS Hx/Imm Hx GI/ History: Gastroesophageal Reflux Psychological History: Anxiety - Surgical History Surgical History: Yes Surgery Procedure, Year, and Place: 2010 TUBAL LIGATION [facility] [place] 1997 & 2010 C- SECTION X2 [facility] [place]/2011 INTESTINAL RESECTION [facility] [place] Sinus Surgery 11/2014 - Family History Known Family History: Positive: Hypertension - Social History Occupation: Employed Full-time Lives: With Family Alcohol Use: Weekly Alcohol Amount: 2-3 DRINKS/WEEK Substance Use Type: None Substance Use Comment - Amount & Last Used: daily xanax Smoking Status (MU): Heavy Every Day Tobacco Smoker Type: Cigarettes Amount Used/How Often: 16 cigs per day Length of Time of Smoking/Using Tobacco: 17 YEARS Have You Smoked in the Last Year: Yes Household Exposure Type: Cigarettes - Immunization History Most Recent Influenza Vaccination: fall 2015 Review of Systems All Other Systems Reviewed And Are Negative: Yes Constitutional: Positive: Negative Skin: Positive: Negative Eyes: Positive: Negative ENT: Positive: Sore Throat Respiratory: Positive: Negative Cardiovascular: Positive: Negative Gastrointestinal: Positive: Negative Neurological: Positive: Negative Psychological: Positive: Negative Physical Exam - Summary Physical Exam Summary: GENERAL: NAD. WDWN. No pain distress. SKIN: No rashes, sores, lesions, or open wounds. HEENT: Head: AT/NC Eyes: EOM intact. Conjunctiva clear without inflammation or discharge. Ears: Hearing grossly normal. TMs intact, no bulging, erythema, or edema. Nose: Nasal mucosa pink and moist. NTTP maxillary and frontal sinus. Throat: Posterior oropharynx without exudates, erythema, or tonsillar enlargement. Uvula midline. NECK: Supple. Nontender. No lymphadenopathy. CHEST: CTAB. No r/r/w. No accessory muscle use. Breathing comfortably and in no distress. CV: RRR. Without m/r/g. Pulses intact. Cap refill <2seconds NEURO: Alert. PSYCH: Age appropriate behavior. Triage Information Reviewed: Yes Vital Signs: Vital Signs: Temp Pulse Resp BP Pulse Ox 97.5 F 84 18 133/79 96 11/25/18 16:51 11/25/18 16:51 11/25/18 16:51 11/25/18 16:51 11/25/18 16:51 Laboratory Tests 11/25/18 17:02 Group A Strep Rapid Negative Vital Signs Reviewed: Yes Throat Pain/Nasal Course/Dx - Course Course Of Treatment: POC strep negative. Suspect viral pharyngitis. - Differential Dx/Diagnosis Provider Diagnosis: Pharyngitis Discharge - Sign-Out/Discharge Documenting (check all that apply): Patient Departure All imaging exams completed and their final reports reviewed: No Studies - Discharge Plan Condition: Stable Disposition: HOME Prescriptions: Benzonatate CAP* [Tessalon 100 MG CAP*] 100 mg PO TID PRN #21 cap PRN Reason: Cough Lidocaine 2% VISCOUS* [Xylocaine 2% Viscous*] 15 ml SWISH SWAL Q6H PRN #300 ml PRN Reason: Pain Patient Education Materials: Pharyngitis (ED) Referrals: Brandie Leonardo MD [Primary Care Provider] - Additional Instructions: If you develop a fever, shortness of breath, chest pain, new or worsening symptoms - please call your PCP or go to the ED. I suspect your symptoms are viral and will likely improve. May take tylenol/ibuprofen for discomfort. May also try tea with honey or salt water gargles to help relieve your discomfort. If your symptoms worsen or do not improve, please be rechecked. - Billing Disposition and Condition Condition: STABLE Disposition: Home - Attestation Statements Provider Attestation: I was available for consult. This patient was seen by the CR[facility]. The patient was not presented to, seen by, or examined by me. -La
[2018-11-25 16:57] VITALS: BP 133/79
== END 2018-11-25 17:23 | disposition home or self-care (01) ==
LOC: UCEAST 16:44
DX: J02.9 Acute pharyngitis, unspecified (principal); F17.210 Nicotine dependence, cigarettes, uncomplicated; Z88.1 Allergy status to other antibiotic agents; Z88.5 Allergy status to narcotic agent; Z88.0 Allergy status to penicillin; Z88.8 Allergy status to other drugs, medicaments and biological substances; Z91.018 Allergy to other foods
CPT/HCPCS: 87651; 99202; G0463

== ENCOUNTER → 2018-12-10 22:04 | Emergency (ER) | payer BC ==
[~2018-12-10 22:04] MED LIST changes: -HYDROcodone/ACETAMIN 5-325 MG* 1 TAB PO ONE; -Ketorolac INJ* 60 MG/2 ML VIAL IM ONE; +Metoclopramide IV* 5 MG/ML 2 ML VIAL IV SLOW PU ONE; +Morphine VIAL* 10 MG/ML 1 ML VIAL IV ONE; +NS 0.9% 1000 ML** 1,000 ML IV ONE
--- NOTE | 2018-12-10 22:38 | ED ---
HPI Chest Pain - HPI Summary HPI Summary: This patient is a 38 year old F presenting to [facility] accompanied by family with a chief complaint of R-sided CP that began at 1900 today. The patient rates the pain 8/10 in severity. Symptoms aggravated by recumbent position. Symptoms alleviated by nothing. Patient denies nausea and vomiting. Patient states she had pizza for dinner at 1830 today. - History of Current Complaint Chief Complaint: EDChestWallPain Time Seen by Provider: 12/10/18 22:30 Hx Obtained From: Patient Hx Last Menstrual Period: 2 weeks ago Onset/Duration: Started Hours Ago, Atraumatic, Still Present Timing: Constant Initial Severity: Severe Current Severity: Severe Pain Intensity: 8 Pain Scale Used: 0-10 Numeric Chest Pain Location: Right Lateral Chest Pain Radiates: No Aggravating Factor(s): Position Alleviating Factor(s): Nothing Associated Signs and Symptoms: Negative: Nausea, Vomiting - Allergy/Home Medications Allergies/Adverse Reactions: Allergies Allergy/AdvReac Type Severity Reaction Status Date / Time cephalexin Allergy Hives Verified 12/10/18 22:14 codeine Allergy Nausea And Verified 12/10/18 22:14 Vomiting Fish Containing Products Allergy Hives/Diff. Verified 12/10/18 22:14 Breathing/I tching iodine Allergy Hives Verified 12/10/18 22:14 mold Allergy Difficulty Verified 12/10/18 22:14 Breathing Penicillins Allergy Unknown Verified 12/10/18 22:14 Reaction Details psyllium Allergy Anaphylatic Verified 12/10/18 22:14 Shock ADHESIVE TAPE Allergy Blisters Uncoded 12/10/18 22:14 PMH/Surg Hx/FS Hx/Imm Hx Previously Healthy: No Endocrine/Hematology History: Denies: Hx Diabetes, Hx Thyroid Disease Cardiovascular History: Reports: Other Cardiovascular Problems/Disorders - LOW BLOOD PRESSURE & LOW BLOOD SUGAR Denies: Hx Congestive Heart Failure, Hx Hypertension - TENDS TO BE LOW, SOMETIMES MAKES HER VERY WEAK, Hx Pacemaker/ICD Respiratory History: Denies: Hx Asthma, Hx Chronic Obstructive Pulmonary Disease (COPD) GI History: Denies: Hx Ulcer Comment Only: Other GI Disorders - 10/2011 INTESTIONAL OBSTRUCTION SURGERY History: Denies: Hx Dialysis, Hx Renal Disease Sensory History: Reports: Hx Contacts or Glasses - WILL WEAR GLASSES Denies: Hx Hearing Aid Opthamlomology History: Reports: Hx Contacts or Glasses - WILL WEAR GLASSES Psychiatric History: Reports: Hx Anxiety - Hx OF, HAS MEDS, HASN'T USED THIS YEAR, Hx Depression, Hx of Violent Episodes Against Others Denies: Hx Eating Disorder, Hx Panic Disorder - Surgical History Surgery Procedure, Year, and Place: 2010 TUBAL LIGATION [facility] [place] 1997 & 2010 C- SECTION X2 [facility] [place] INTESTINAL RESECTION [facility] [place] Sinus Surgery 11/2014 Hx Anesthesia Reactions: - BP DROPPED LOW - Immunization History Date of Tetanus Vaccine: unk Date of Influenza Vaccine: unk Infectious Disease History: No Infectious Disease History: Reports: Hx Shingles Denies: Hx Clostridium Difficile, Hx Hepatitis, Hx Human Immunodeficiency Virus (HIV), Hx of Known/Suspected MRSA, Hx Tuberculosis, Traveled Outside the [place] in Last 30 Days - Family History Known Family History: Positive: Hypertension - Social History Occupation: Employed Full-time Lives: With Family Alcohol Use: Weekly Alcohol Amount: 2-3 DRINKS/WEEK Hx Substance Use: No Substance Use Type: Reports: None Substance Use Comment - Amount & Last Used: daily xanax Hx Tobacco Use: Yes Smoking Status (MU): Heavy Every Day Tobacco Smoker Type: Cigarettes Amount Used/How Often: 16 cigs per day Length of Time of Smoking/Using Tobacco: 17 YEARS Have You Smoked in the Last Year: Yes Review of Systems Positive: Chest Pain Negative: Vomiting, Nausea All Other Systems Reviewed And Are Negative: Yes Physical Exam - Summary Physical Exam Summary: VITAL SIGNS: Reviewed. GENERAL: Patient is a well-developed and nourished female who is lying comfortable in the stretcher. Patient is not in any acute respiratory distress. HEAD AND FACE: No signs of trauma. No ecchymosis, hematomas or skull depressions. No sinus tenderness. EYES: PERRLA, EOMI x 2, No injected conjunctiva, no nystagmus. EARS: Hearing grossly intact. Ear canals and tympanic membranes are within normal limits. MOUTH: Oropharynx within normal limits. NECK: Supple, trachea is midline, no adenopathy, no JVD, no carotid bruit, no c- spine tenderness, neck with full ROM. CHEST: Symmetric, no tenderness at palpation LUNGS: Clear to auscultation bilaterally. No wheezing or crackles. CVS: Regular rate and rhythm, S1 and S2 present, no murmurs or gallops appreciated. ABDOMEN: Soft, RUQ tenderness. No signs of distention. No rebound no guarding, and no masses palpated. Bowel sounds are normal. EXTREMITIES: FROM in all major joints, no edema, no cyanosis or clubbing. NEURO: Alert and oriented x 3. No acute neurological deficits. Speech is normal and follows commands. SKIN: Dry and warm Triage Information Reviewed: Yes Vital Signs On Initial Exam: Initial Vitals Temp Pulse Resp BP Pulse Ox 98.7 F 72 20 141/76 98 12/10/18 22:11 12/10/18 22:11 12/10/18 22:11 12/10/18 22:11 12/10/18 22:11 Vital Signs Reviewed: Yes Diagnostics - Vital Signs Vital Signs Temp Pulse Resp BP Pulse Ox 12/10/18 22:11 98.7 F 72 20 141/76 98 - Laboratory Result Diagrams: 12/10/18 23:05 12/10/18 23:05 Lab Statement: Any lab studies that have been ordered have been reviewed, and results considered in the medical decision making process. - Radiology Chest XR Radiology Interpretation Completed By: ED Physician Summary of Radiographic Findings: CXR reveals, per ED physician, no acute process. - CT CT abd/pel CT Interpretation Completed By: Radiologist Summary of CT Findings: CT abd/pel reveals no acute findings. - Ultrasound No standard instances Ultrasound Interpretation Completed By: Radiologist Summary of Ultrasound Findings: 1. No evidence of cholelithiasis. Note distention of the gallbladder. 2. Hepatomegaly. No focal hepatic lesion. ED physician has reviewed this radiology report. - EKG 2204 Cardiac Rate: NL EKG Rhythm: Sinus Rhythm - 73 BPM Summary of EKG Findings: An EKG taken at 2204 reveals nml sinus rhythm at 73 BPM with nml axis, nml intervals, and no ischemic changes. Chest Pain Course/Dx - Course Assessment/Plan: This patient is a 38 year old F presenting to [facility] accompanied by family with a chief complaint of R-sided CP that began at 1900 today. Gallbladder US reveals 1. No evidence of cholelithiasis. Note distention of the gallbladder. 2. Hepatomegaly. No focal hepatic lesion. CT abd/pel reveals no acute findings. This patient will be discharged with dx of chest wall pain. Patient understands and agrees with this plan. - Chest Pain Differential Diagnosis/HQI/PQRI: Other: - chest wall pain - Diagnoses Provider Diagnoses: Chest wall pain Discharge - Sign-Out/Discharge Documenting (check all that apply): Patient Departure - discharge Patient Received Moderate/Deep Sedation with Procedure: No - Discharge Plan Condition: Stable Disposition: HOME Patient Education Materials: Chest Wall Pain (ED) Referrals: Brandie Leonardo MD [Primary Care Provider] - (Follow up in 1-2 days.) Additional Instructions: RETURN TO THE EMERGENCY DEPARTMENT FOR CHANGING OR WORSENING SYMPTOMS. FOLLOW UP WITH PCP IN 1-2 DAYS. - Attestation Statements Document Initiated by Scribe: Yes Documenting Scribe: Tabatha Rosado Provider For Whom Scribe is Documenting (Include Credential): Dr. Chapo Cobb MD Scribe Attestation: I, Tabatha Rosado, scribed for Dr. Chapo Cobb MD on 12/11/18 at 0052. Status of Scribe Document: Ready
[2018-12-10 23:15] LABS: ABS Basophils 0 10^3/ul (0-0.2); ABS Eosinophils 0.4 10^3/ul (0-0.6); ABS Lymphocytes 3.6 10^3/ul (1.0-4.8); ABS Monocytes 0.7 10^3/ul (0-0.8); ABS Neutrophils 8.7 10^3/ul (1.5-7.7); ABS Nucleated RBC 0 10^3/ul; Eosinophil % 2.7 %; Hematocrit 41 % (35-47); Hemoglobin 14.1 g/dl (12.0-16.0); Mean Corpuscular HGB Conc 34 g/dl (31-36); Mean Corpuscular Hemoglobin 30 pg (27-31); Mean Corpuscular Volume 89 fL (80-97); Mean Platelet Volume 7.8 fL (7.4-10.4); Nucleated Red Blood Cells % 0; Platelet Count 315 10^3/ul (150-450); Red Blood Count 4.68 10^6/ul (4.00-5.40); Red Cell Distribution Width 13 % (10.5-15); White Blood Count 13.5 10^3/ul (3.5-10.8)
[2018-12-10 23:24] LABS: Activated Partial Thrombo Time 25.3 seconds (26.0-36.3); INR 0.77 (0.77-1.02)
[2018-12-10 23:34] LABS: ALT 14 U/L (7-52); AST 14 U/L (13-39); Albumin 4.4 g/dL (3.2-5.2); Albumin/Globulin Ratio 1.4 (1-3); Alkaline Phosphatase 59 U/L (34-104); Amylase 30 U/L (29-103); Anion Gap 7 mmol/L (2-11); BUN/Creatinine Ratio 16.7 (8-20); Blood Urea Nitrogen 10 mg/dL (6-24); CO2 Carbon Dioxide 24 mmol/L (22-32); Calcium 9.3 mg/dL (8.6-10.3); Chloride 105 mmol/L (101-111); EGFR African American 134.7 (>60); EGFR Non-African American 111.3 (>60); Globulin 3.2 g/dL (2-4); Glucose 109 mg/dL (70-100); Magnesium 2.2 mg/dL (1.9-2.7); Potassium 3.8 mmol/L (3.5-5.0); Sodium 136 mmol/L (135-145); Total Protein 7.6 g/dL (6.4-8.9)
[2018-12-10 23:40] LABS: HCG Pregnancy < 0.60 mIU/mL
[2018-12-11 00:09] LABS: Urine Appearance Clear; Urine Bacteria 1+ (Absent); Urine Bilirubin Negative (Negative); Urine Blood 1+ (Negative); Urine Color Colorless; Urine Glucose Negative (Negative); Urine Ketones Negative (Negative); Urine Nitrite Negative (Negative); Urine Protein Negative (Negative); Urine Red Blood Cell Trace(0-2/hpf) (Absent); Urine Specific Gravity 1.003 (1.010-1.030); Urine Squamous Epithelial Cell Present (Absent); Urine Urobilinogen Negative (Negative); Urine White Blood Cell Absent (Absent)
[2018-12-11 01:26] VITALS: BP 124/62
== END | disposition home or self-care (01) ==
LOC: ED 22:04
DX: R07.89 Other chest pain (principal); R16.0 Hepatomegaly, not elsewhere classified; Z88.1 Allergy status to other antibiotic agents; Z88.3 Allergy status to other anti-infective agents; Z88.5 Allergy status to narcotic agent; Z88.0 Allergy status to penicillin; Z91.013 Allergy to seafood; Z91.048 Other nonmedicinal substance allergy status; F17.210 Nicotine dependence, cigarettes, uncomplicated
CPT/HCPCS: 36415; 71045; 74176; 76705; 80053; 81003; 81015; 82150; 83690; 83735; 84484; 84702; 85025; 85379; 85610; 85730; 87086; 93005; 96374; 96375; 99283; J2270; J2765

== ENCOUNTER 2018-12-15 16:43 | Emergency (ER) | payer BC ==
[2018-12-15 16:56] VITALS: BP 125/54
--- NOTE | 2018-12-15 17:35 | UC ---
Cardiac HPI - HPI Summary HPI Summary: Pt presents with discomfort right anterior upper/lateral chest. Pt states last wed developed discomfort. Pt went to ED, had evaluation including CT scan u/s, labs, cxr and was diagnosed with chest wall muscle strain. pt states has been taking motrin every 8 hours with short term improvement. Pain is worse when lays flat on back. pt is RHD. Pt states pain was improving - she returned to work today and pain much worse. Called pcp - has appt Wed- was advised to come to for a recheck. Pt denies fevers, chills. Pt states had cough, resolved. No sob -f eels "pull" when take deeps breath. denies direct trauma, no abd pain no n/v. no h/o similar medications reviewed this visit. - History of Current Complaint Chief Complaint: UCGeneralIllness Stated Complaint: PULLED MUSCLE IN CHEST Time Seen by Provider: 12/15/18 17:17 Hx Obtained From: Patient, Medical Records - 12/10/18 ED visit Hx Last Menstrual Period: 11/27/18 Pain Intensity: 3 - Allergy/Home Medications Allergies/Adverse Reactions: Allergies Allergy/AdvReac Type Severity Reaction Status Date / Time cephalexin Allergy Hives Verified 12/15/18 16:56 codeine Allergy Nausea And Verified 12/15/18 16:56 Vomiting Fish Containing Products Allergy Hives/Diff. Verified 12/15/18 16:56 Breathing/I tching iodine Allergy Hives Verified 12/15/18 16:56 mold Allergy Difficulty Verified 12/15/18 16:56 Breathing Penicillins Allergy Unknown Verified 12/15/18 16:56 Reaction Details psyllium Allergy Anaphylatic Verified 12/15/18 16:56 Shock ADHESIVE TAPE Allergy Blisters Uncoded 12/10/18 22:14 PMH/Surg Hx/FS Hx/Imm Hx Previously Healthy: Yes - Surgical History Surgical History: Yes Surgery Procedure, Year, and Place: 2010 [place] [facility] [place] C- [place] [facility] [place] [facility] [place]us Surgery 11/2014 - Family History Known Family History: Positive: Hypertension, Non-Contributory - Social History Occupation: Employed Full-time Lives: With Family Alcohol Use: Weekly Alcohol Amount: 2-3 DRINKS/WEEK Substance Use Type: None Substance Use Comment - Amount & Last Used: daily xanax Smoking Status (MU): Heavy Every Day Tobacco Smoker Type: Cigarettes Amount Used/How Often: 16 cigs per day Length of Time of Smoking/Using Tobacco: 17 YEARS Have You Smoked in the Last Year: Yes Household Exposure Type: Cigarettes - Immunization History Most Recent Influenza Vaccination: fall 2015 Review of Systems All Other Systems Reviewed And Are Negative: Yes Constitutional: Positive: Negative Skin: Positive: Negative Respiratory: Positive: Cough. Negative: Shortness Of Breath Cardiovascular: Positive: Negative Gastrointestinal: Positive: Negative Genitourinary: Positive: Negative Musculoskeletal: Positive: Other: - right anterior chest wall. Negative: Calf Tenderness Physical Exam - Summary Physical Exam Summary: vital sign reviewed A+Ox3, no distress Eyes: Conjunctiva Clear, JOHAN. EOM intact and full ENT: Hearing grossly normal TM x 2 clear, mmoist, uvula midline, no exudate, no erythema Neck: Positive: Supple Respiratory: Positive: No respiratory distress, No accessory muscle use + CTA throughout no w/r, speaking full easy sentences. holding left hand against right upper chest wall for support + reproducible discomfort right anterior/ lateral chest wall pain no crepitus recrease with direct palp, ROM upper ext. no nipple discharge. breast masses noted. no axillary lymphadenopathy Cardiovascular: RRR nl s1, s2 no m/r CBT <2 sec abd soft + BS nt/nd no guarding, no distension Musculoskeletal Exam: ACOSTA x 4 without difficulty Strength Intact, ROM Intact right anterior chest wall Neurological: Positive: Alert, + sensation throughout Psychological: Positive: Normal Response To Family Skin: Positive: no rash, no ecchymosis Triage Information Reviewed: Yes Vital Signs: Initial Vital Signs Temp 97.6 F 12/15/18 16:49 Pulse 76 12/15/18 16:49 Resp 16 12/15/18 16:49 BP 125/54 12/15/18 16:49 Pulse Ox 99 12/15/18 16:49 Diagnostics - Radiology No standard instances Radiology Interpretation Completed By: ED Physician Re-Evaluation - Re-Evaluation First Eval Comment: reviewed images with pt/ aware prelim. pt states improved comfort with sling, jason. work note. motrin/apap Q3hour. f/u with PCP wed. strictr return precautions - Assessment/Plan Course Of Treatment: Pt with recurrent, reproducible right anterior chest wall pain. Pt had had since last wed - unclear cause - ?related to coughing. Pt had eval in ED 12/10 - records and imaging reviewed Pt with stable vs. right ant/ lat reproducible chest wall pain. Will check imaging for ?interval change. recommend increase analgesia regimen. jason for comfort - strict d/w pt regarding deep inspirations. sling. PCP appt Wed - Clinical Impression Provider Diagnosis: Chest wall pain Discharge - Sign-Out/Discharge Documenting (check all that apply): Patient Departure All imaging exams completed and their final reports reviewed: No - Discharge Plan Condition: Stable Disposition: HOME Patient Education Materials: Chest Wall Pain (ED) Forms: *Work Release Referrals: Brandie Leonardo MD [Primary Care Provider] - (Wed as scheduled ) Additional Instructions: - Alternate ibuprofen (Advil, Motrin)600mg and Tylenol 1000mg every 3 hours for pain. Take with food - Wear jason wrap for comfort and support - it is VERY important you take deep, slow breaths several times an hour - Okay to take off jason wrap and hold a pillow against your ribs for comfort - Apply heat to your chest wall for comfort - Keep your appointment as scheduled on Saturday with your doctor - If you develop and shortness of breath, uncontrolled pain, vomiting or lightheadedness - contact your doctor or go directly to the emergency department - Billing Disposition and Condition Condition: STABLE Disposition: Home
[2018-12-15] MEDS ORDERED: Acetaminophen TAB* 325 MG PO ONE (18:41)
--- NOTE | 2018-12-16 12:03 | UC ---
- Progress Note Progress Note: Patient Name: TORIE GONZALEZ Medical Record#: [id number] Ordering Physician: Kate Stock MD Acct.#: [id number] : 1980 Age: 38 Sex: F Location: [facility] Exam Date: 12/15/181743 ADM Status: DEP ER Order Information: CHEST PA & LAT 2 VWS Accession Number: [id number] CPT: 90108 INDICATION: Right anterior rib chest wall pain. Cough and fever on and off. COMPARISON: Comparison is made with prior chest x-ray studies from September and December 10, 2017. TECHNIQUE: Dual-energy PA and lateral views of the chest were obtained. FINDINGS: The heart is within normal limits in size. Mediastinal and hilar contours appear within normal limits. The lungs are clear. No pleural effusion is present. There are calcifications likely within lymph nodes in the right axillary region which are unchanged from prior studies. IMPRESSION: NO EVIDENCE FOR ACTIVE CARDIOPULMONARY DISEASE. R0 Preliminary Imaging Read R0 <Electronically signed by Ortega Oliveira MD in OV> 12/16/18722 Dictated By: Ortega Oliveira MD Dictated Date/Time: 12/16/18722 Transcribed Date/Time: 12/16/18719 Copy to: CC:Kate Stock MD; Brandie Leonardo MD Imaging - [facility] Imaging [facility] [address] [address] ph ([phone]) ph ([phone]) ph ([phone]) This report is only to be considered final once signed by the Provider(s) as displayed in the "<Electronically Signed by >" field (s). Absence of a signature indicates the report is in a draft status and still needs to be finalized. In the event this document was created by someone other than the signing Provider, the individual initiating the document will be listed in the "Entered by:" or "Dictated by:" buchanan. 1 of 1 Course/Dx - Diagnoses Provider Diagnoses: Chest wall pain Discharge - Sign-Out/Discharge Documenting (check all that apply): Post-Discharge Follow Up All imaging exams completed and their final reports reviewed: Yes - Discharge Plan Condition: Stable Disposition: HOME Patient Education Materials: Chest Wall Pain (ED) Forms: *Work Release Referrals: Brandie Leonardo MD [Primary Care Provider] - (Wed as scheduled ) Additional Instructions: - Alternate ibuprofen (Advil, Motrin)600mg and Tylenol 1000mg every 3 hours for pain. Take with food - Wear jason wrap for comfort and support - it is VERY important you take deep, slow breaths several times an hour - Okay to take off jason wrap and hold a pillow against your ribs for comfort - Apply heat to your chest wall for comfort - Keep your appointment as scheduled on Saturday with your doctor - If you develop and shortness of breath, uncontrolled pain, vomiting or lightheadedness - contact your doctor or go directly to the emergency department - Billing Disposition and Condition Condition: STABLE Disposition: Home
== END 2018-12-15 18:45 | disposition home or self-care (01) ==
LOC: UCEAST 16:43
DX: R07.89 Other chest pain (principal); Z88.1 Allergy status to other antibiotic agents; Z88.3 Allergy status to other anti-infective agents; Z88.5 Allergy status to narcotic agent; Z88.0 Allergy status to penicillin; Z91.013 Allergy to seafood; Z88.8 Allergy status to other drugs, medicaments and biological substances; Z91.048 Other nonmedicinal substance allergy status; F17.210 Nicotine dependence, cigarettes, uncomplicated
CPT/HCPCS: 71046; 99212; A9270-GY; G0463

== ENCOUNTER 2019-07-21 17:19 | Emergency (ER) | payer BC ==
[2019-07-21 18:07] VITALS: BP 118/71
--- NOTE | 2019-07-21 18:56 | UC ---
Respiratory Complaint HPI - HPI Summary HPI Summary: 39 year old female with no PMH, no prior lung disease, + tob use, no vaping use presents with 2-3 days of cough, non-productive, fever 100, headache, body aches , nasal congestion, sore throat. no ear pain. no GI symptoms. - History of Current Complaint Chief Complaint: UCRespiratory Stated Complaint: SORE THROAT, CHEST CONGESTION Time Seen by Provider: 07/21/19 18:28 Hx Obtained From: Patient, Family/Public Health Director - , child Hx Last Menstrual Period: [id number] Onset/Duration: Sudden Onset, Lasting Days - since 07/19 Timing: Constant Severity Currently: Moderate Pain Intensity: 6 Pain Scale Used: 0-10 Numeric Character: Cough: Nonproductive Aggravating Factors: Deep Breaths, Recumbent Position Associated Signs And Symptoms: Positive: Dyspnea, Fever - 100, Chills, URI, Nasal Congestion, Sinus Discomfort. Negative: Dizziness - Allergies/Home Medications Allergies/Adverse Reactions: Allergies Allergy/AdvReac Type Severity Reaction Status Date / Time cephalexin Allergy Hives Verified 07/21/19 18:08 codeine Allergy Nausea And Verified 07/21/19 18:08 Vomiting Fish Containing Products Allergy Hives/Diff. Verified 07/21/19 18:08 Breathing/I tching iodine Allergy Hives Verified 07/21/19 18:08 mold Allergy Difficulty Verified 07/21/19 18:08 Breathing Penicillins Allergy Unknown Verified 07/21/19 18:08 Reaction Details psyllium Allergy Anaphylatic Verified 07/21/19 18:08 Shock ADHESIVE TAPE Allergy Blisters Uncoded 07/21/19 18:08 Home Medications: Home Medications Dm/PE/Acetaminophen/Doxylamine [Vicks Dayquil-Nyquil Cold-Flu] 1 each PO Q4H PRN 07/21/19 [History Confirmed 07/21/19] PMH/Surg Hx/FS Hx/Imm Hx Previously Healthy: Yes - Surgical History Surgical History: Yes Surgery Procedure, Year, and Place: 2010 TUBAL LIGATION [facility] [place] 1997 [place] 2010 C- SECTION X2 [facility] [place] INTESTINAL RESECTION [facility] [place] Sinus Surgery 11/2014 - Family History Known Family History: Positive: Hypertension, Non-Contributory - Social History Alcohol Use: Occasionally Alcohol Amount: 2-3 DRINKS/WEEK Substance Use Type: None Substance Use Comment - Amount & Last Used: daily xanax Smoking Status (MU): Heavy Every Day Tobacco Smoker Type: Cigarettes Amount Used/How Often: 16 cigs per day Length of Time of Smoking/Using Tobacco: 17 YEARS Have You Smoked in the Last Year: Yes Household Exposure Type: Cigarettes - Immunization History Most Recent Influenza Vaccination: fall 2015 Review of Systems All Other Systems Reviewed And Are Negative: Yes Constitutional: Positive: Chills, Fatigue ENT: Positive: Sore Throat, Ear Ache, Nasal Discharge, Sinus Congestion, Sinus Pain/Tenderness Respiratory: Positive: Shortness Of Breath, Cough Neurological: Positive: Headache, Weakness Is Patient Immunocompromised?: No Physical Exam Triage Information Reviewed: Yes Appearance: No Pain Distress, Well-Nourished, Ill-Appearing - mild Vital Signs: Initial Vital Signs Temp 98.2 F 07/21/19 18:02 Pulse 75 07/21/19 18:02 Resp 16 07/21/19 18:02 BP 118/71 07/21/19 18:02 Pulse Ox 99 07/21/19 18:02 Vital Signs Reviewed: Yes Eyes: Positive: Conjunctiva Clear ENT: Positive: Pharynx normal, Nasal congestion, Nasal drainage, TMs normal, Sinus tenderness, Uvula midline. Negative: Pharyngeal erythema, TM bulging, TM dull, TM red, Tonsillar swelling, Tonsillar exudate Neck: Positive: Supple, Nontender, No Lymphadenopathy. Negative: Nuchal Rigidity, Enlarged Nodes @ Respiratory: Positive: Chest non-tender, Normal breath sounds, No respiratory distress, No accessory muscle use, Crackles - RLL Cardiovascular: Positive: RRR, No Murmur Neurological Exam: Normal Skin Exam: Normal Respiratory Course/Dx - Course Course Of Treatment: CXR- negative, reviewed with Dr. Rudolph. + for calcified LN's axillary, patient aware and was told of them years ago, will follow up with PCP Acute Bronchitis - Over the counter medications to help with coughing - increase fluid intake, humidifer at bedside to keep mucous membrane moist and prevent coughing. - Tesslon Pearls for cough - Motrin/ Tylenol as needed for body aches, fever - Albuterol inhaler to help with cough, shortness of breath - Differential Dx/Diagnosis Differential Diagnosis/HQI/PQRI: Sinusitis Provider Diagnosis: Acute bronchitis Discharge ED - Sign-Out/Discharge Documenting (check all that apply): Patient Departure All imaging exams completed and their final reports reviewed: Yes - Discharge Plan Condition: Good Disposition: HOME Prescriptions: Albuterol HFA INHALER* [Ventolin HFA Inhaler*] 1 - 2 puff INH Q4H PRN #1 mdi PRN Reason: cough, shortness of breath Benzonatate CAP* [Tessalon 100 MG CAP*] 100 mg PO TID #30 cap Patient Education Materials: Acute Bronchitis (ED), Bronchospasm (ED) Referrals: Brandie Leonardo MD [Primary Care Provider] - Additional Instructions: Acute Bronchitis - Over the counter medications to help with coughing - increase fluid intake, humidifer at bedside to keep mucous membrane moist and prevent coughing. - Tesslon Pearls for cough - Motrin/ Tylenol as needed for body aches, fever - Albuterol inhaler to help with cough, shortness of breath - Billing Disposition and Condition Condition: GOOD Disposition: Home - Attestation Statements Provider Attestation: Per institutional requirements, I have reviewed the chart, however, I was not consulted specifically or made aware of this patient by the midlevel provider. I did not personally evaluate, interact with , or disposition this patient.
== END 2019-07-21 19:29 | disposition home or self-care (01) ==
LOC: UCEAST 17:19
DX: J20.9 Acute bronchitis, unspecified (principal); F17.210 Nicotine dependence, cigarettes, uncomplicated; Z88.0 Allergy status to penicillin; Z88.5 Allergy status to narcotic agent
CPT/HCPCS: 71046; 99212; G0463

== ENCOUNTER 2019-07-27 12:57 | Emergency (ER) | payer BC ==
[2019-07-27 13:02] VITALS: BP 130/74
[2019-07-27] MEDS ORDERED: Albuterol/Ipratropium NEB.SOL* Albuterol 2.5 MG/Ipratropium 0.5 MG 3 ML INH ONE (13:13)
[2019-07-27] MEDS ORDERED: Albuterol HFA INHALER* 8 gm MDI INH ONE ×2 (13:52→14:01)
--- NOTE | 2019-07-27 13:52 | ED ---
Respiratory - HPI Summary HPI Summary: Ms. Claude Sierra was here week or so ago and diagnosed with bronchitis. She is given a prescription for an inhaler and Tessalon Perles. She was unable to fill the inhaler prescription but began to improve the last couple days she's worsened again and still does not have the inhaler. She comes in stating that she is coughing incessantly. She denies any fever or chills - History of Current Complaint Chief Complaint: UCRespiratory Stated Complaint: SOB Hx Obtained From: Patient Onset/Duration: Gradual Onset Timing: Constant Initial Severity: Moderate Current Severity: Moderate Pain Intensity: 0 Character: Wheezing, Cough (Nonproductive), Dyspnea on Exertion Sputum Amount: None Aggravating Factor(s): Nothing Alleviating Factor(s): Nothing - Allergy/Home Medications Allergies/Adverse Reactions: Allergies Allergy/AdvReac Type Severity Reaction Status Date / Time cephalexin Allergy Hives Verified 07/27/19 13:02 codeine Allergy Nausea And Verified 07/27/19 13:02 Vomiting Fish Containing Products Allergy Hives/Diff. Verified 07/27/19 13:02 Breathing/I tching iodine Allergy Hives Verified 07/27/19 13:02 mold Allergy Difficulty Verified 07/27/19 13:02 Breathing Penicillins Allergy Unknown Verified 07/27/19 13:02 Reaction Details psyllium Allergy Anaphylatic Verified 07/27/19 13:02 Shock ADHESIVE TAPE Allergy Blisters Uncoded 07/27/19 13:02 PMH/Surg Hx/FS Hx/Imm Hx Previously Healthy: Yes Endocrine/Hematology History: Denies: Hx Diabetes, Hx Thyroid Disease Cardiovascular History: Reports: Other Cardiovascular Problems/Disorders - LOW BLOOD PRESSURE & LOW BLOOD SUGAR Denies: Hx Congestive Heart Failure, Hx Hypertension - TENDS TO BE LOW, SOMETIMES MAKES HER VERY WEAK, Hx Pacemaker/ICD Respiratory History: Denies: Hx Asthma, Hx Chronic Obstructive Pulmonary Disease (COPD) GI History: Denies: Hx Ulcer Comment Only: Other GI Disorders - 10/2011 INTESTIONAL OBSTRUCTION SURGERY History: Denies: Hx Dialysis, Hx Renal Disease Sensory History: Reports: Hx Contacts or Glasses - WILL WEAR GLASSES Denies: Hx Hearing Aid Opthamlomology History: Reports: Hx Contacts or Glasses - WILL WEAR GLASSES Psychiatric History: Reports: Hx Anxiety - Hx OF, HAS MEDS, HASN'T USED THIS YEAR, Hx Depression, Hx of Violent Episodes Against Others Denies: Hx Eating Disorder, Hx Panic Disorder - Surgical History Surgery Procedure, Year, and Place: 2010 [place] [facility] [place] [facility] [place] [facility] [place] 11/2014 Hx Anesthesia Reactions: - BP DROPPED LOW - Immunization History Date of Tetanus Vaccine: unk Date of Influenza Vaccine: unk Infectious Disease History: No Infectious Disease History: Reports: Hx Shingles - 2014 on her thigh Denies: Hx Clostridium Difficile, Hx Hepatitis, Hx Human Immunodeficiency Virus (HIV), Hx of Known/Suspected MRSA, Hx Tuberculosis, Traveled Outside the [place] in Last 30 Days - Family History Known Family History: Positive: Hypertension, Non-Contributory - Social History Alcohol Use: Occasionally Alcohol Amount: 2-3 DRINKS/WEEK Hx Substance Use: No Substance Use Type: Reports: None Substance Use Comment - Amount & Last Used: daily xanax Hx Tobacco Use: Yes Smoking Status (MU): Heavy Every Day Tobacco Smoker Type: Cigarettes Amount Used/How Often: 16 cigs per day Length of Time of Smoking/Using Tobacco: 17 YEARS Have You Smoked in the Last Year: Yes Review of Systems Positive: Shortness Of Breath, Cough All Other Systems Reviewed And Are Negative: Yes Physical Exam - Summary Physical Exam Summary: She is nontoxic in appearance with stable vitals but is coughing a dry cough frequently in the room. Triage Information Reviewed: Yes Vital Signs On Initial Exam: Initial Vitals Temp Pulse Resp BP Pulse Ox 97.9 F 114 24 130/74 98 07/27/19 12:59 07/27/19 12:59 07/27/19 12:59 07/27/19 12:59 07/27/19 12:59 Vital Signs Reviewed: Yes Appearance: Positive: Well-Appearing Skin: Positive: Warm, Dry Respiratory/Lung Sounds: Positive: Decreased Breath Sounds Cardiovascular: Positive: RRR Neurological: Positive: Normal Diagnostics - Vital Signs Vital Signs Temp Pulse Resp BP Pulse Ox 07/27/19 12:59 97.9 F 114 24 130/74 98 - Laboratory Lab Statement: Any lab studies that have been ordered have been reviewed, and results considered in the medical decision making process. Disposition - Course Course Of Treatment: She improved dramatically with the nebulizer and we are going to dispense an inhaler for her. - Diagnoses Provider Diagnoses: Bronchospasm Discharge ED - Sign-Out/Discharge Documenting (check all that apply): Patient Departure All imaging exams completed and their final reports reviewed: No Studies - Discharge Plan Condition: Stable Disposition: HOME Patient Education Materials: Bronchospasm (ED) Referrals: Brandie Leonardo MD [Primary Care Provider] - - Billing Disposition and Condition Condition: STABLE Disposition: Home
== END 2019-07-27 14:08 | disposition home or self-care (01) ==
LOC: UCEAST 12:57
DX: J98.01 Acute bronchospasm (principal); F41.9 Anxiety disorder, unspecified; F17.210 Nicotine dependence, cigarettes, uncomplicated; Z88.1 Allergy status to other antibiotic agents; Z88.5 Allergy status to narcotic agent; Z91.09 Other allergy status, other than to drugs and biological substances; Z91.013 Allergy to seafood; Z88.0 Allergy status to penicillin; Z88.8 Allergy status to other drugs, medicaments and biological substances
CPT/HCPCS: 99212; A9270-GY; G0463